=== PATIENT | male | born 1995 | race Two or more races ===

== ENCOUNTER 2022-09-20 13:17 | Emergency (ER) | payer OTHER ==
[2022-09-20] MEDS ORDERED: fentaNYL 50 MCG/ML SDV IVPUSH ONE ×2 (14:48→16:03)
[2022-09-20] MEDS ORDERED: fentaNYL 100 MCG/2 ML SDV ONE (14:48)
[2022-09-20] MEDS ORDERED: Propofol 200 MG/20 ML SDV ONE (16:37)
[2022-09-20] MEDS ORDERED: Atropine 0.1 MG/ML 10 ML Syringe IV ONE (17:00)
[2022-09-20] MEDS ORDERED: Atropine 0.1 MG/ML 10 ML Syringe ONE (17:00)
[2022-09-20] MEDS ORDERED: Propofol 200 MG/20 ML SDV IVPUSH ONE (17:01)
[2022-09-20] MEDS ORDERED: oxyCODONE 5 MG Tab PO ONE (17:25)
[2022-09-20] MEDS ORDERED: Acetaminophen 325 MG Tab PO ONE (17:25)
[2022-09-20] MEDS ORDERED: Ibuprofen 400 MG Tab PO ONE (17:25)
== END 2022-09-20 17:46 | disposition home or self-care (01) ==
LOC: MW.ED 13:17
DX: S43.014A Anterior dislocation of right humerus, initial encounter (principal); S43.034A Inferior dislocation of right humerus, initial encounter; Z91.013 Allergy to seafood; W20.8XXA Other cause of strike by thrown, projected or falling object, initial encounter; Y92.65 Oil rig as the place of occurrence of the external cause; Y99.0 Civilian activity done for income or pay
CPT/HCPCS: 23650; 73020; 73030; 96374; 96376; 99283; A9270; J0461; J2704; J3010